=== PATIENT | female | born 1990 | race African-American/Black ===

== ENCOUNTER → 2017-12-02 | Outpatient (CLI) | payer OTHER | END | disposition home or self-care (01) | LOC: EKG 15:03 | DX: Z01.818 Encounter for other preprocedural examination (principal) | CPT/HCPCS: 93005 ==

== ENCOUNTER → 2017-12-06 | Outpatient (CLI) | payer OTHER | END | disposition home or self-care (01) | LOC: US 14:53 | DX: Z45.812 Encounter for adjustment or removal of left breast implant (principal); Z45.811 Encounter for adjustment or removal of right breast implant; Z98.82 Breast implant status | CPT/HCPCS: 76641 ==

== ENCOUNTER 2017-12-17 21:32 | Emergency (ER) | payer OTHER ==
[2017-12-18 08:34] LABS: NEGATIVE OBC STREP NEG; POSITIVE OBC STREP POS
== END 2017-12-17 22:48 | disposition home or self-care (01) ==
LOC: ER 21:32
DX: J02.0 Streptococcal pharyngitis (principal)
CPT/HCPCS: 87880; 99283

== ENCOUNTER 2018-05-20 18:56 | Emergency (ER) | payer OTHER ==
[~2018-05-20] VITALS: Ht 175.3 cm; Wt 95.3 kg
[~2018-05-20 18:56] MED LIST: AMOX1TAB61 PO
[2018-05-20 19:20] VITALS: BP 131/79
--- NOTE | 2018-05-20 21:09 | RAD ---
EXAM: Left foot, 3 views. HISTORY: Pain. COMPARISON: None. FINDINGS: 3 views of the left shoulder obtained. There is a left hallux valgus deformity. There is no fracture, dislocation or subluxation. IMPRESSION: Left hallux valgus. Electronically signed by: Julia Jones MD (05/20/2018 9:06 PM) [facility]
--- NOTE | 2018-05-20 21:22 | PHYS DOC ---
Past Medical History Past Medical History: No Pertinent History Past Surgical History: Other Additional Past Surgical Histo: L KNEE (X2) Alcohol Use: Occasionally Drug Use: None Adult General Chief Complaint Chief Complaint: TOE PROBLEM HPI HPI 27-year-old female presents to ER for complaints of left foot pain which is been ongoing since 04/30/18 when she dropped a skillet on her left great toe. She denies evaluation after injury by doctor or having xray done. Patient reports she has had increased swelling/pain on inner lt ft since injury. Patient reports she has been able to walk without assistive device. Patient reports she has been stephani taping lt great toe with 2nd toe. LMP 05/08/18. Review of Systems Review of Systems Constitutional: Denies fever or chills [] Respiratory: Denies shortness of breath [] Cardiovascular: No additional information not addressed in HPI [] Musculoskeletal: Reports lt foot pain on inner side of foot along side of great toe Integument: Denies redness/open wound Neurologic: Denies numbness/tingling All other systems were reviewed and found to be within normal limits, except as documented in this note. Allergies Allergies Allergies Coded Allergies Type Severity Reaction Last Updated Verified No Known Drug Allergies 12/17/17 No Physical Exam Physical Exam Constitutional: Well developed, well nourished, no acute distress, non-toxic appearance. [] HENT: Normocephalic, atraumatic, oropharynx moist, nose normal. [] Eyes: Pupils equal, conjunctiva normal, no discharge. [] Neck: Normal range of motion, no tenderness, supple Cardiovascular:Heart rate rhythm Lungs & Thorax: Resp. equal/nonlabored Skin: Warm, dry, no erythema, no rash. [] Extremities: Tender to palp. medial side of left foot at base of great toe- great toe turns inward w/pt having bunion type appearance at site of tenderness. Skin color NL w/o erythema/ecchymosis. Cap refill brisk all toes lt foot. Lt ankle NL exam- no tenderness. No cyanosis, no clubbing, ROM intact, no edema. [] Neurologic: Alert and oriented X 3, normal motor function, normal sensory function, no focal deficits noted. Steady gait without assist Psychologic: Affect normal, judgement normal, mood normal. [] Current Patient Data Vital Signs Vital Signs Date Time Temp Pulse Resp B/P (MAP) Pulse Ox O2 Delivery O2 Flow Rate FiO2 05/20/18 19:20 98.0 71 18 131/79 (96) 99 Room Air 98.0 EKG EKG [] Radiology/Procedures Radiology/Procedures PROCEDURE: FOOT LEFT 3V EXAM: Left foot, 3 views. HISTORY: Pain. COMPARISON: None. FINDINGS: 3 views of the left shoulder obtained. There is a left hallux valgus deformity. There is no fracture, dislocation or subluxation. IMPRESSION: Left hallux valgus. Electronically signed by: Julia Uribe MD (05/20/2018 9:06 PM) [facility] DICTATED and SIGNED BY: JULIA URIBE MD DATE: 05/20/182054 Course & Med Decision Making Course & Med Decision Making Pertinent Imaging studies reviewed. (See chart for details) Discussed xray results showing bunion neg. for obvious fx/dislocation- discussed f/u with orthopedics or podiatry for further care if sxs persist or worsen. Discussed cool soaking of foot- OTC tylenol and/or ibuprofen as directed on container. She remains neuro and vascular intact in left lower extremity. RN applied postop shoe with gauze placed between lt great and 2nd toe with pt reporting this improved the pain when she puts weight on her lt LE. Pt is in no visible distress at time of discharge discussion. Patient was offered dose of ibuprofen however she preferred no medications while in the ER as pain was tolerable. Discharge instructions were discussed and education provided on signs and symptoms to return to ER for. Will provide orthopedics info on discharge paperwork for follow-up purposes. Dragon Disclaimer Dragon Disclaimer This electronic medical record was generated, in whole or in part, using a voice recognition dictation system. Departure Departure Impression: Primary Impression: Hallux valgus of left foot Disposition: HOME, SELF-CARE Condition: STABLE Referrals: NO PCP (PCP) GIRISH TELLO MD Follow-up with orthopedic doctor for further care and evaluation Patient Instructions: Bunion (Hallux Valgus)-[employer] Additional Instructions: Tylenol and/or ibuprofen as directed on container for pain as needed. There are over the counter bunion support you can try for pain- if symptoms persist follow-up with orthopedic doctor for further care/evaluation. Attending Signature Attending Signature I have reviewed the PA/PINION SORTER's note and plan of care. I was available for consultation as needed during the patient's visit in the emergency department. I agree with the clinical impression, plan, and disposition. SHANTHI FERGUSON APRN May 20, 2018 21:22 MARIANA MAURICIO DO May 22, 2018 10:00
== END 2018-05-20 21:30 | disposition home or self-care (01) ==
LOC: ER 18:56
DX: M20.12 Hallux valgus (acquired), left foot (principal)
CPT/HCPCS: 73630; 99284

== ENCOUNTER 2019-01-19 13:18 | Emergency (ER) | payer OTHER ==
[~2019-01-19] VITALS: Ht 175.3 cm; Wt 95.3 kg
[2019-01-19 14:38] LABS: BILIRUBIN,URINE NEGATIVE (NEG); CLARITY,URINE CLEAR; COLOR,URINE YELLOW; NITRITE,URINE NEGATIVE (NEG); PH,URINE 6.5; PROTEIN,URINE NEGATIVE (NEG-TRACE); UROBILINOGEN,URINE 0.2 mg/dL (0.2 mg/dL)
[2019-01-19 14:42] LABS: U PREG PATIENT NEGATIVE (NEG)
[2019-01-19 14:57] LABS: SQUAMOUS EPITHELIAL CELL,UR MANY /LPF
[2019-01-19 14:58] LABS: BACTERIA,URINE MOD /HPF (0-FEW)
[2019-01-19] MEDS ORDERED: cefTRIAXone IV Push 1 GM VIAL. IVP ONE (15:45)
[2019-01-19] MEDS ORDERED: ONDANSETRON PF 4 MG/2 ML VIAL. IV ONE (15:45)
[2019-01-19] MEDS ORDERED: DICYCLOMINE HCL 10 MG CAPSULE PO ONE (15:45)
--- NOTE | 2019-01-19 15:45 | PHYS DOC ---
Past Medical History Past Medical History: No Pertinent History Past Surgical History: Other Additional Past Surgical Histo: L KNEE (X2) Alcohol Use: Occasionally Drug Use: None Adult General Chief Complaint Chief Complaint: NAUSEA/VOMITING/DIARRHA HPI HPI Patient is a 28 year old female with no significant medical history who presents to the ED today complaining of mild abdominal pain described as sharp around the umbilicus, nausea, vomiting, diarrhea symptoms began today. Patient denies any fever. Denies any hematemesis or melena. Denies any exacerbating or relieving factors to her symptoms. Review of Systems Review of Systems Constitutional: Denies fever or chills [] Eyes: Denies change in visual acuity, redness, or eye pain [] HENT: Denies nasal congestion or sore throat [] Respiratory: Denies cough or shortness of breath [] Cardiovascular: No additional information not addressed in HPI [] GI: Reports abdominal pain, nausea vomiting and diarrhea : Denies dysuria or hematuria [] Musculoskeletal: Denies back pain or joint pain [] Integument: Denies rash or skin lesions [] All other systems were reviewed and found to be within normal limits, except as documented in this note. Current Medications Current Medications Current Medications Medications (Trade) Dose Ordered Sig/Marry Start Time Stop Time Status Last Admin Dose Admin Ceftriaxone Sodium (Rocephin) 1 gm 1X ONCE 01/19/19 15:45 01/19/19 15:46 DC 01/19/19 16:45 1 GM Dicyclomine HCl (Bentyl) 20 mg 1X ONCE 01/19/19 15:45 01/19/19 15:46 DC Ondansetron HCl (Zofran) 4 mg 1X ONCE 01/19/19 15:45 01/19/19 15:46 DC 01/19/19 16:42 4 MG Allergies Allergies Allergies Coded Allergies Type Severity Reaction Last Updated Verified No Known Drug Allergies 12/17/17 No Physical Exam Physical Exam Constitutional: Well developed, well nourished, no acute distress, non-toxic appearance. [] HENT: Normocephalic, atraumatic, bilateral external ears normal, oropharynx moist, no oral exudates, nose normal. [] Eyes: PERRLA, EOMI, conjunctiva normal, no discharge. [] Neck: Normal range of motion, no tenderness, supple, no stridor. [] Cardiovascular:Heart rate regular rhythm, no murmur [] Lungs & Thorax: Bilateral breath sounds clear to auscultation [] Abdomen: Bowel sounds normal, soft, no tenderness, no masses, no pulsatile masses. [] Skin: Warm, dry, no erythema, no rash. [] Back: No tenderness, no CVA tenderness. [] Extremities: No tenderness, no cyanosis, no clubbing, ROM intact, no edema. [] Neurologic: Alert and oriented X 3, normal motor function, normal sensory function, no focal deficits noted. [] Psychologic: Affect normal, judgement normal, mood normal. [] Current Patient Data Vital Signs Vital Signs Date Time Temp Pulse Resp B/P (MAP) Pulse Ox O2 Delivery O2 Flow Rate FiO2 01/19/19 15:00 98.7 79 20 134/72 (92) 97 Room Air 98.7 Lab Values Laboratory Tests Test 01/19/19 14:15 01/19/19 16:30 Urine Collection Type Unknown Urine Color Yellow Urine Clarity Clear Urine pH 6.5 Urine Specific [place] 1.020 Urine Protein Negative mg/dL (NEG-TRACE) Urine Glucose (UA) Negative mg/dL (NEG) Urine Ketones (Stick) Negative mg/dL (NEG) Urine Blood Negative (NEG) Urine Nitrite Negative (NEG) Urine Bilirubin Negative (NEG) Urine Urobilinogen Dipstick 0.2 mg/dL (0.2 mg/dL) Urine Leukocyte Esterase Moderate (NEG) Urine RBC 1-2 /HPF (0-2) Urine WBC 11-20 /HPF (0-4) Urine Squamous Epithelial Cells Many /LPF Urine Bacteria Mod /HPF (0-FEW) Urine Test Negative (NEG) Urine Opiates Screen Neg (NEG) Urine Methadone Screen Neg (NEG) Urine Barbiturates Neg (NEG) Urine Phencyclidine Screen Neg (NEG) Urine Amphetamine/Methamphetamine Neg (NEG) Urine Benzodiazepines Screen Neg (NEG) Urine Cocaine Screen Neg (NEG) Urine Cannabinoids Screen Pos (NEG) Urine Ethyl Alcohol Neg (NEG) White Blood Count 7.8 x10^3/uL (4.0-11.0) Red Blood Count 4.55 x10^6/uL (3.50-5.40) Hemoglobin 10.3 g/dL (12.0-15.5) L Hematocrit 31.5 % (36.0-47.0) L Mean Corpuscular Volume 69 fL (79-100) L Mean Corpuscular Hemoglobin 23 pg (25-35) L Mean Corpuscular Hemoglobin Concent 33 g/dL (31-37) Red Cell Distribution Width 20.6 % (11.5-14.5) H Platelet Count 344 x10^3/uL (140-400) Neutrophils (%) (Auto) 86 % (31-73) H Lymphocytes (%) (Auto) 5 % (24-48) L Monocytes (%) (Auto) 7 % (0-9) Eosinophils (%) (Auto) 2 % (0-3) Basophils (%) (Auto) 0 % (0-3) Neutrophils # (Auto) 6.7 x10^3uL (1.8-7.7) Lymphocytes # (Auto) 0.4 x10^3/uL (1.0-4.8) L Monocytes # (Auto) 0.6 x10^3/uL (0.0-1.1) Eosinophils # (Auto) 0.1 x10^3/uL (0.0-0.7) Basophils # (Auto) 0.0 x10^3/uL (0.0-0.2) Segmented Neutrophils % 73 % (35-66) H Band Neutrophils % 10 % (0-9) H Lymphocytes % 9 % (24-48) L Monocytes % 3 % (0-10) Eosinophils % 5 % (0-5) Platelet Estimate Adequate (ADEQUATE) Hypochromasia Mod Anisocytosis Mod Microcytosis Marked Sodium Level 135 mmol/L (136-145) L Potassium Level 3.7 mmol/L (3.5-5.1) Chloride Level 101 mmol/L (98-107) Carbon Dioxide Level 27 mmol/L (21-32) Anion Gap 7 (6-14) Blood Urea Nitrogen 12 mg/dL (7-20) Creatinine 0.8 mg/dL (0.6-1.0) Estimated GFR (Cockcroft-Gault) 104.9 BUN/Creatinine Ratio 15 (6-20) Glucose Level 97 mg/dL (70-99) Calcium Level 8.9 mg/dL (8.5-10.1) Total Bilirubin 0.4 mg/dL (0.2-1.0) Aspartate Amino Transferase (AST) 18 U/L (15-37) Alanine Aminotransferase (ALT) 22 U/L (14-59) Alkaline Phosphatase 79 U/L (46-116) Total Protein 8.8 g/dL (6.4-8.2) H Albumin 3.9 g/dL (3.4-5.0) Albumin/Globulin Ratio 0.8 (1.0-1.7) L Lipase 139 U/L (73-393) Ethyl Alcohol Level < 3 mg/dL (0-10) Laboratory Tests 01/19/19 16:30 Laboratory Tests 01/19/19 16:30 EKG EKG [] Radiology/Procedures Radiology/Procedures [] Course & Med Decision Making Course & Med Decision Making Pertinent Labs and Imaging studies reviewed. (See chart for details) This is a 28-year-old female patient presenting to the ED today with abdominal pain, nausea vomiting and diarrhea symptoms began today. Negative urine hCG, urine noted for UTI of the specimen appears contaminated, started on Rocephin. CBC with normal WBC but noted for slight left shift. CMP-no acute findings. Patient was discharged home with cephalexin and Zofran. Instructed push fluids. Follow-up with her own doctor in 1-2 weeks. Dragon Disclaimer Dragon Disclaimer This electronic medical record was generated, in whole or in part, using a voice recognition dictation system. Departure Departure Impression: Primary Impression: Urinary tract infection Additional Impression: Vomiting and diarrhea Disposition: 01 HOME, SELF-CARE Condition: STABLE Referrals: NO PCP (PCP) follow up with your doctor in 1-2 weeks Patient Instructions: Diarrhea, [id number], Nausea and Vomiting, Eas y-to-Read, Urinary Tract Infection Additional Instructions: You were evaluated in the emergency room and noted to have urinary tract infection as well as diarrhea and vomiting. Please take the prescribed antibiotics until completed. Follow-up with your doctor in 1-2 weeks. Push fluids. Consider taking Tylenol or Motrin for pain or fever. Scripts Ondansetron Hcl (ZOFRAN) 4 Mg Tablet 1 TAB PO Q6HRS, #20 TAB Prov: MUTUNGA,GOSIA [employer] 01/19/19 Cephalexin (CEPHALEXIN) 500 Mg Capsule 1 CAP PO QID, #40 CAP Prov: MUTUNGA,GOSIA [employer] 01/19/19 Problem Qualifiers Primary Impression: Urinary tract infection Urinary tract infection type: site unspecified Hematuria presence: without hematuria Qualified Codes: N39.0 - Urinary tract infection, site not specified GOSIA SCOTT APRN Jan 19, 2019 15:45
[2019-01-19 16:02] LABS: AMPHETAMINE/METHAMPHETAMINE NEG (NEG); BARBITURATES NEG (NEG); BENZODIAZEPINES NEG (NEG); CANNABINOIDS POS (NEG); COCAINE NEG (NEG); METHADONE NEG (NEG); OPIATES NEG (NEG); PHENCYCLIDINE NEG (NEG)
[2019-01-19 16:42] LABS: BASO % 0 % (0-3); EOS # 0.1 x10^3/uL (0.0-0.7); EOS % 2 % (0-3); HEMATOCRIT 31.5 % (36.0-47.0); HEMOGLOBIN 10.3 g/dL (12.0-15.5); LYMPH # 0.4 x10^3/uL (1.0-4.8); LYMPH % 5 % (24-48); MEAN CORPUSCULAR HEMOGLOBIN 23 pg (25-35); MEAN CORPUSCULAR HGB CONC 33 g/dL (31-37); MEAN CORPUSCULAR VOLUME 69 fL (79-100); MONO # 0.6 x10^3/uL (0.0-1.1); MONO % 7 % (0-9); NEUT # 6.7 x10^3uL (1.8-7.7); NEUT % 86 % (31-73); PLATELET COUNT 344 x10^3/uL (140-400); RED BLOOD COUNT 4.55 x10^6/uL (3.50-5.40); RED CELL DISTRIBUTION WIDTH 20.6 % (11.5-14.5); WHITE BLOOD COUNT 7.8 x10^3/uL (4.0-11.0)
[2019-01-19 17:01] LABS: CALCIUM 8.9 mg/dL (8.5-10.1); CREATININE 0.8 mg/dL (0.6-1.0); GFR 104.9; POTASSIUM 3.7 mmol/L (3.5-5.1)
[2019-01-19 17:08] LABS: ALBUMIN 3.9 g/dL (3.4-5.0); ALBUMIN/GLOBULIN RATIO 0.8 (1.0-1.7); TOTAL BILIRUBIN 0.4 mg/dL (0.2-1.0); TOTAL PROTEIN 8.8 g/dL (6.4-8.2)
[2019-01-19 17:19] LABS: % BANDS 10 % (0-9); % EOS 5 % (0-5); % LYMPHS 9 % (24-48); % MONOS 3 % (0-10); % SEGS 73 % (35-66); HYPOCHROMIA MOD; PLT ESTIMATE ADEQUATE (ADEQUATE)
[2019-01-19 17:20] LABS: ANISOCYTOSIS MOD; MICROCYTOSIS MARKED
[2019-01-19 17:30] VITALS: BP 130/82
[2019-01-19] MEDS ORDERED: ONDA4TAB7 PO (17:32)
[2019-01-19] MEDS ORDERED: CEPH500C PO (17:32)
== END 2019-01-19 18:11 | disposition home or self-care (01) ==
LOC: ER 13:18
DX: N39.0 Urinary tract infection, site not specified (principal); R11.2 Nausea with vomiting, unspecified; R19.7 Diarrhea, unspecified
CPT/HCPCS: 36415; 80053; 80307; 81001; 81025; 83690; 85007; 85025; 96374; 96375; 99284; G0480; J0696; J2405

== ENCOUNTER 2019-07-12 23:14 | Emergency (ER) | payer OTHER ==
[~2019-07-12] VITALS: Ht 177.8 cm; Wt 100.7 kg
[~2019-07-12 23:14] MED LIST changes: +CEPH500C PO; +ONDA4TAB7 PO
[2019-07-12 23:33] VITALS: BP 157/76
--- NOTE | 2019-07-13 00:35 | PHYS DOC ---
Past Medical History Past Medical History: Arthritis (STACI WINTER APRN) Past Surgical History: Other Additional Past Surgical Histo: L KNEE (X2) (STACI WINTER APRN) Alcohol Use: Occasionally Drug Use: None (STACI WINTER APRN) Attending Signature I have participated in the care of this patient and I have reviewed and agree with all pertinent clinical information above including history, exam, and recommendations. (HANG RAMIREZ MD) Adult General Chief Complaint Chief Complaint: LOWER EXT PAIN HPI HPI Patient is a 28 year old AA female who presents to the emergency department with complaints of lateral left knee pain and anterior left knee pain after falling while at work yesterday. Patient states that she has been able to bear weight and walk without problems however she reports concern due to previous knee surgeries 2 on the same knee. She denies any numbness, tingling, or weakness of the affected leg. Currently, she rates her pain an 8 out of 10 on the pain scale, she denies any alleviating factors. She has tried taking Tylenol at home with no benefit. All other ROS is neg unless otherwise noted in HPI. (STACI WINTER APRN) Review of Systems Review of Systems See Above (STACI WINTER APRN) Allergies Allergies Allergies Coded Allergies Type Severity Reaction Last Updated Verified No Known Drug Allergies 12/17/17 No (HANG RAMIREZ MD) Physical Exam Physical Exam See Above Constitutional: Well developed, well nourished, no acute distress, non-toxic appearance, obese. [] HENT: Normocephalic, atraumatic, bilateral external ears normal, nose normal. [] Eyes: PERRLA, EOMI, conjunctiva normal, no discharge. [] Neck: Normal range of motion, no stridor. [] Cardiovascular:Heart rate regular rhythm Lungs & Thorax: Respirations even and unlabored, no retractions, no respiratory distress Skin: Warm, dry, no erythema, no rash. [] Extremities: Anterior left knee tenderness to palpation, negative drawer testing. No obvious deformity or cyanosis, no clubbing, ROM intact, no edema. [] Neurologic: Alert and oriented X 3, no focal deficits noted. [] Psychologic: Affect normal, judgement normal, mood normal. [] (STACI WINTER APRN) Current Patient Data Vital Signs Vital Signs Date Time Temp Pulse Resp B/P (MAP) Pulse Ox O2 Delivery O2 Flow Rate FiO2 07/12/19 23:33 97.8 82 18 157/76 (103) 94 Room Air 97.8 (HANG RAMIREZ MD) EKG EKG [] (STACI WINTER APRN) Radiology/Procedures Radiology/Procedures L knee xray negative for acute fx or findings read by Dr. Ramirez[] (STACI WINTER APRN) Course & Med Decision Making Course & Med Decision Making Pertinent Labs and Imaging studies reviewed. (See chart for details) [] (STACI WINTER APRN) Dragon Disclaimer Dragon Disclaimer This electronic medical record was generated, in whole or in part, using a voice recognition dictation system. (STACI WINTER APRN) Departure Departure Impression: Primary Impression: Left anterior knee pain Additional Impressions: Left lateral knee pain Contusion of left knee, initial encounter Disposition: HOME, SELF-CARE Condition: STABLE Referrals: NO PCP (PCP) GIRISH CARSON MD Patient Instructions: Contusion, [id number] Additional Instructions: Fill prescription(s) and use as directed. Recommend application of ice, elevation, and rest of affected extremity. You might consider purchasing a compression knee sleeve for support and comfort. Follow up with Dr. Carson or your head orthopedic team physician if symptoms persist. Return to the ER if your symptoms worsen. Scripts Naproxen (NAPROXEN) 500 Mg Tablet 1 TAB PO BID PRN for PAIN for 10 Days, #20 TAB 0 Refills Prov: STACI WINTER APRN 07/13/19 Problem Qualifiers STACI WINTER APRN Jul 13, 2019 00:35 HANG RAMIREZ MD Jul 13, 2019 04:38
[2019-07-13] MEDS ORDERED: NAPR-514 PO (00:39)
--- NOTE | 2019-07-13 08:07 | RAD ---
KNEE LEFT 3V History: Left knee pain after a fall Comparison: None. Findings: 3 views of the left knee are submitted. No acute fracture or dislocation is identified by radiographs. Impression: 1. No acute osseous abnormality is identified by radiographs. Electronically signed by: Oscar Machado MD (07/13/2019 8:04 AM) [id number]
== END 2019-07-13 00:43 | disposition home or self-care (01) ==
LOC: ER 23:14
DX: S80.02XA Contusion of left knee, initial encounter (principal); M19.90 Unspecified osteoarthritis, unspecified site; W18.39XA Other fall on same level, initial encounter; Y93.89 Activity, other specified; Y92.89 Other specified places as the place of occurrence of the external cause; Y99.0 Civilian activity done for income or pay
CPT/HCPCS: 73562; 99284

== ENCOUNTER 2019-11-02 22:12 | Emergency (ER) | payer OTHER ==
[~2019-11-02] VITALS: Ht 175.3 cm; Wt 105.2 kg
[~2019-11-02 22:12] MED LIST changes: +NAPR-514 PO
[2019-11-02] MEDS ORDERED: ORPHENADRINE CITRATE 60 MG/2 ML VIAL. IM ONE (23:15)
[2019-11-02] MEDS ORDERED: KETOROLAC 60 MG/2 ML VIAL. IM ONE (23:15)
[2019-11-02] MEDS ORDERED: DICL50TA4 PO (23:29)
[2019-11-02] MEDS ORDERED: HYDR-3164 PO (23:29)
[2019-11-02] MEDS ORDERED: ORPH100T PO (23:29)
--- NOTE | 2019-11-02 23:30 | PHYS DOC ---
Past Medical History Past Medical History: Arthritis Past Surgical History: Other Additional Past Surgical Histo: L KNEE (X2) Smoking Status: Never Smoker Alcohol Use: Occasionally Drug Use: None General Adult EDM: Chief Complaint: Neck Pain HPI: HPI: Patient is a 29 year old female who presents with complaint of neck pain with radiation down into her left shoulder and numbness and tingling down her left arm. Patient states the pain has been present for the last couple days but has been getting worse. She rates pain at an 8 out of 10 and states the pain is worsened when she tries to turn her neck. She denies any loss of bowel or bladder control.[] Review of Systems: Review of Systems: Constitutional: Denies fever or chills. [] Respiratory: Denies cough or shortness of breath. [] Cardiovascular: Denies chest pain or edema. [] Musculoskeletal: Complains of neck and upper back pain. [] Integument: Denies rash. [] Neurologic: Denies headache or weakness. [] Heart Score: Risk Factors: Risk Factors: DM, Current or recent (<one month) smoker, HTN, HLP, family history of CAD, obesity. Risk Scores: Score 0 - 3: 2.5% MACE over next 6 weeks - Discharge Home Score 4 - 6: 20.3% MACE over next 6 weeks - Admit for Clinical Observation Score 7 - 10: 72.7% MACE over next 6 weeks - Early Invasive Strategies Current Medications: Current Medications Medications (Trade) Dose Ordered Sig/Marry Start Time Stop Time Status Last Admin Dose Admin Ketorolac Tromethamine (Toradol Im) 60 mg 1X ONCE 11/02/19 23:15 11/02/19 23:16 DC Orphenadrine Citrate (Norflex) 60 mg 1X ONCE 11/02/19 23:15 11/02/19 23:16 DC Allergies: Allergies: Allergies Coded Allergies Type Severity Reaction Last Updated Verified No Known Drug Allergies 12/17/17 No Physical Exam: PE: Constitutional: Well developed, well nourished, no acute distress, non-toxic appearance. [] HENT: Normocephalic, atraumatic, bilateral external ears normal, oropharynx moist, no oral exudates, nose normal. [] Eyes: PERRLA, EOMI, conjunctiva normal, no discharge. [] Neck: Normal range of motion, with left sided suboccipital and left-sided cervical strap muscle tenderness and spasm. [] Cardiovascular: Regular rate and rhythm[] Lungs & Thorax: Bilateral breath sounds clear to auscultation [] Skin: Warm, dry, no erythema, no rash. [] Back: There is tenderness to palpation in the left-sided levator scapula musculature. [] Current Patient Data: Vital Signs: Vital Signs Date Time Temp Pulse Resp B/P (MAP) Pulse Ox O2 Delivery O2 Flow Rate FiO2 11/02/19 22:27 98.2 83 18 158/100 (119) 100 Room Air 98.2 EKG: EKG: [] Radiology/Procedures: Radiology/Procedures: [] Course & Med Decision Making: Course & Med Decision Making Pertinent Labs and Imaging studies reviewed. (See chart for details) [] Dragon Disclaimer: Dragon Disclaimer: This electronic medical record was generated, in whole or in part, using a voice recognition dictation system. Departure Departure Impression: Primary Impression: Neck pain Additional Impression: Cervical paraspinal muscle spasm Disposition: 01 HOME, SELF-CARE Condition: STABLE Referrals: NO PCP (PCP) Patient Instructions: Musculoskeletal Pain Scripts Orphenadrine Citrate (ORPHENADRINE CITRATE) 100 Mg Tablet.er 1 TAB PO BID PRN for MUSCLE SPASMS, #14 TAB Prov: HILL MARIO Jr. DO 11/02/19 Hydrocodone/Apap 5-325 (NORCO 5-325 TABLET) 1 Each Tablet 1-2 EACH PO PRN Q6HRS PRN for PAIN, #15 as needed for pain Prov: HILL MARIO Jr. DO 11/02/19 Diclofenac Sodium (DICLOFENAC SODIUM) 50 Mg Tablet.dr 1 TAB PO BID PRN for PAIN, #20 TAB Prov: HILL MARIO Jr. DO 11/02/19 HILL MARIO Jr. DO Nov 02, 2019 23:29
[2019-11-02 23:46] VITALS: BP 148/89
--- NOTE | 2019-11-02 23:52 | RAD ---
Cervical spine x-rays 3 views HISTORY: Neck pain with left-sided radiculopathy for 2 months. FINDINGS: C2 odontoid intact on the open-mouth and lateral views although the tip is partially obscured by overlapping density of the skull base. Cervical vertebral body height and alignment are intact. No prevertebral soft tissue swelling. Intervertebral disc height of the cervical spine preserved. No fracture evident. IMPRESSION: Normal exam. Electronically signed by: Germain Jauregui MD (11/02/2019 11:49 PM) [id number]
== END 2019-11-02 23:50 | disposition home or self-care (01) ==
LOC: ER 22:12
DX: M54.2 Cervicalgia (principal); M62.838 Other muscle spasm; M25.512 Pain in left shoulder; R20.2 Paresthesia of skin
CPT/HCPCS: 72040; 96372; 99284; J1885; J2360

== ENCOUNTER 2020-08-20 02:52 | Emergency (ER) | payer OTHER ==
[~2020-08-20] VITALS: Ht 175.3 cm; Wt 104.6 kg
[~2020-08-20 02:52] MED LIST changes: +DICL50TA4 PO; +HYDR-3164 PO; +ORPH100T PO
--- NOTE | 2020-08-20 03:33 | PHYS DOC ---
Past Medical History Past Medical History: Arthritis Past Surgical History: Other Additional Past Surgical Histo: L KNEE (X2) Smoking Status: Never Smoker Alcohol Use: Occasionally Drug Use: None General Adult EDM: Chief Complaint: VAGINAL PROBLEM HPI: HPI: 29 yo F presents to the ED with complaints of " I think given allergic reaction to Monistat." Pt reports in the past month she was treated with antibiotics for urinary tract infection. Later developed pruritic vaginal discharge and took Monistat one on . Reports applying the cream caused external burning and her external skin burned and when she voided. Does report external itching. Denies any associated pain, dysuria, hematuria, suprapubic pressure, nausea, vomiting, fever, chills or flank pain. Reports she has an appointment with her STRAW HAT MACHINE OPERATOR this next week. Review of Systems: Review of Systems: Constitutional: Denies fever or chills. [] Eyes: Denies change in visual acuity. [] HENT: Denies nasal congestion or sore throat. [] Respiratory: Denies cough or shortness of breath. [] Cardiovascular: Denies chest pain or edema. [] GI: Denies abdominal pain, nausea, vomiting, bloody stools or diarrhea. [] : Denies dysuria or hematuria Musculoskeletal: Denies back pain or joint pain. [] Integument: Denies rash or crepitus Neurologic: Denies headache, focal weakness or sensory changes. [] Endocrine: Denies polyuria or polydipsia. [] Lymphatic: Denies swollen glands. [] Psychiatric: Denies depression or anxiety. [] Heart Score: Risk Factors: Risk Factors: DM, Current or recent (<one month) smoker, HTN, HLP, family history of CAD, obesity. Risk Scores: Score 0 - 3: 2.5% MACE over next 6 weeks - Discharge Home Score 4 - 6: 20.3% MACE over next 6 weeks - Admit for Clinical Observation Score 7 - 10: 72.7% MACE over next 6 weeks - Early Invasive Strategies Allergies: Allergies: Allergies Coded Allergies Type Severity Reaction Last Updated Verified bupivacaine Allergy Unknown Nausea and Vomiting 20/20 Yes Physical Exam: PE: Constitutional: Well developed, well nourished, no acute distress, non-toxic appearance. HENT: Normocephalic, atraumatic, Eyes: EOMI, conjunctiva normal, no discharge. Neck: Normal range of motion, supple, Cardiovascular: S1/2 present, regular rhythm Lungs & Thorax: Speaking in full sentences, bilateral equal chest rise, no tachypnea or increased work of breathing Abdomen: soft, no tenderness, Skin: Warm, dry, no erythema, no rash. [] Back: No tenderness, no CVA tenderness. [] Extremities: No tenderness, no cyanosis, no edema Neurologic: Alert and oriented X 3, normal motor function, normal sensory function, no focal deficits noted. [] Psychologic: Affect normal, judgement normal, mood normal. [] Pelvic: Chaperoned by RN, external genitalia normal-no rash/warmth/erythema/ulcers/vesicular lesions, no vaginal bleeding, yellow discharge with some white small clumps, no odor, cervical os closed, no cervical erythema, no vb, tolerated exam well Current Patient Data: Labs: Laboratory Tests Test 08/20/20 03:14 POC Urine HCG, Qualitative Hcg negative (Negative) EKG: EKG: [] Radiology/Procedures: Radiology/Procedures: [] Course & Med Decision Making: Course & Med Decision Making Pertinent Labs and Imaging studies reviewed. (See chart for details) Initially presentation concerning for BV given recent abx. Wet prep c/w bv and trich. Will tx with flagyl. Encouraged STRAW HAT MACHINE OPERATOR follow-up as scheduled appointment next week for repeat urinalysis and STI testing. Will discharge home with strict ED return precautions were given for severe abdominal pain, fever, flulike symptoms, abnormal vaginal discharge or vaginal bleeding. Encouraged urgent outpatient follow-up with PMD and STRAW HAT MACHINE OPERATOR. Life-threatening processes were considered but are low suspicion at this time, given history, physical exam and ED workup. Pt was educated on all prescription medications and adverse effects. All patient's questions were answered and pt was stable at time of discharge. Life/limb-threatening differential includes but is not limited to, ectopic , septic , infection (endometritis, sti/pid, cystitis, pyelonephritis, Holger's gangrene or necrotizing fasciitis, abscess), ovarian torsion, ruptured hemorrhagic ovarian cyst, endometriosis, ureterolithiasis, thrombophlebitis, hemorrhage/DIC, organ prolapse, abdominal aortic aneurysm, mesenteric ischemia, neoplasm, bowel obstruction or surgical abdomen. I spoken with the patient and her caregivers. I explained the patient's c ondition, diagnoses and treatment plan based on the information available to me at this time. I have answered the patient and her caregiver's questions and addressed any concerns. The patient and her caregivers have a good understanding of patient's diagnosis, condition and treatment plan as can be expected at this point. Vital signs have been stable. Patient's condition is stable and appropriate for discharge from the emergency department. Patient will pursue further outpatient evaluation with primary care physician or other designated or consulting physician as outlined in the discharge instructions. The patient and/or caregivers are agreeable to this plan of care and follow-up instructions have been explained in detail. The patient and/or caregivers have received these instructions in written form and have expressed an understanding of the discharge instructions. The patient and/or caregivers are aware that any significant change of condition or worsening of symptoms should prompt immediate return to this or the closest emergency department or call to 1. Brinda Disclaimer: Brinda Disclaimer: This electronic medical record was generated, in whole or in part, using a voice recognition dictation system. Departure Departure Impression: Primary Impression: Bacterial vaginosis Additional Impression: Trichomonas vaginalis infection Disposition: 01 DC HOME SELF CARE/HOMELESS Condition: STABLE Referrals: NO PCP (PCP) FOLLOW UP WITH FAMILY MEDICINE: Family Medicine Address: [address] [place] [address] Patient Instructions: Bacterial Vaginosis, Trichomoniasis Additional Instructions: FOLLOW UP WITH STRAW HAT MACHINE OPERATOR: [facility] Address: [address] [place] [address] EMERGENCY DEPARTMENT GENERAL DISCHARGE INSTRUCTIONS Thank you for coming to [facility] Emergency Department (ED) today and trusting us with you care. We trust that you had a positive experience in our Emergency Department. If you wish to speak to the department management, you may call the Director at [phone]. YOUR FOLLOW UP INSTRUCTIONS ARE FOLLOWS: 1. Do you have a private Doctor? If you do not have a private doctor, please ask for a resource list of physicians or clinics that may be able to assist you with follow up care. 2. The Emergency Physicain has interpreted your x-rays. The X-Ray specialist will also review them. If there is a change in the findings, you will be notified in 48 hours when at all possible. 3. A lab test or culture has been done, your results will be reviewed and you will be notified if you need a change in treatment. ADDITIONAL INSTRUCTIONS AND INFORMATION: 1. Your care today has been supervised by a physician who is specially trained in emergency care. Many problems require more than one evaluation for a complete diagnosis and treatment. We recommend that you schedule your follow up appointment as recommended to ensure complete treatment of you illness or injury. If you are unable to obtain follow up care and continue to have a problem, or if your condition worsens, we recommend that you return to the ED. 2. We are not able to safely determine your condition over the phone nor are we able to give sound medical advice over the phone. For these safety reasons, if you call for medical advice we will ask you to come to the ED for further evaluation. 3. If you have any questions regarding these discharge instructions please call the ED at [phone]. SAFETY INFORMATION: In the interest of safety, wellness, and injury prevention; we encourage you to wear your sealbelt, if you smoke; quite smoking, and we encourage family to use a protective helmet for bicycling and other sporting events that present an increased risk for head injury. IF YOUR SYMPTOMS WORSEN OR NEW SYMPTOMS DEVELOP, OR YOU HAVE CONCERNS ABOUT YOUR CONDITION; OR IF YOUR CONDITION WORSENS WHILE YOU ARE WAITING FOR YOUR FOLLOW UP APPOINTMENT; EITHER CONTACT YOUR PRIMARY CARE DOCTOR, THE PHYSICIAN WHOSE NAME AND NUMBER YOU WERE GIVEN, OR RETURN TO THE ED IMMEDIATELY. Scripts Metronidazole (FLAGYL) 500 Mg Tablet 1 TAB PO BID for 7 Days, #14 TAB Prov: SHANTHI REYNA DO 08/20/20 SHANTHI REYNA DO Aug 20, 2020 03:33
[2020-08-20 04:40] VITALS: BP 125/81
[2020-08-20] MEDS ORDERED: METR500T PO (04:58)
== END 2020-08-20 05:06 | disposition home or self-care (01) ==
LOC: ER 02:52
DX: N76.0 Acute vaginitis (principal); B96.89 Other specified bacterial agents as the cause of diseases classified elsewhere; A59.01 Trichomonal vulvovaginitis; Z88.7 Allergy status to serum and vaccine
CPT/HCPCS: 81025; 99284; Q0111